=== PATIENT | male | born 1980 | race Caucasian/White ===

== ENCOUNTER 2020-10-27 13:32 | Outpatient (RCR) | payer MEDICAID, SELFPAY | END 2020-12-28 23:59 | LOC: IMMUN 13:32 | PROVIDERS: PCP Registered Nurse; Visit Provider Family Medicine | DX: Z23 Encounter for immunization (principal) | CPT/HCPCS: 0002A; 91300 ==

== ENCOUNTER 2024-01-25 08:58 | Emergency (ER) | payer MEDICAID, SELFPAY ==
[2024-01-25 08:58] VITALS: BP 143/86; BP 144/91; PULSE 129; PULSE 135; RESP 22; RESP 24; TEMP 37.2; O2SAT 95; O2SAT 96; BMI 32.8
--- NOTE | 2024-01-25 09:21 | RAD_ITS ---
INDICATION: cough sob fever EXAMINATION/TECHNIQUE: X-RAY - XR Chest 2 Views COMPARISON: No relevant prior comparison study available FINDINGS: LINES/DEVICES: None. LUNGS: Left perihilar and lower lung infiltrates concerning for pneumonia. Hypoventilatory changes. No evidence of pleural effusions. MEDIASTINUM AND CARDIOVASCULAR STRUCTURES: Cardiac silhouette not enlarged. Central airways and mediastinal contour are unremarkable. BONES AND SOFT TISSUES: Unremarkable. RAD/Chest PA and Lateral IMPRESSION: Left lower lung infiltrate concerning for pneumonia. Electronically Signed: Jeffery Larios MD at 10:02 EDT ,
--- NOTE | 2024-01-25 09:22 | EX.ED.DYSGE1 ---
HPI History of Present Illness Chief Complaint: General Illness Informant: patient Narrative Narrative: Patient states he has been ill with respiratory symptoms for the past week. His son was sick with similar symptoms prior to this, but the patient is having subjective fevers and chills and headaches that his son did not have. His son has a lingering cough. Patient has had episodes of bronchospasm, but when he is not coughing he states he is not really dyspneic. Denies any orthopnea or leg swelling. He is spitting up sputum but has not looked at it does not taste any blood. No history of lung disease or asthma. Not a smoker. States he went urgent care 4 days ago and had a negative COVID/influenza/RSV swab and no other testing done. He is having some diarrhea but not a ton. [facility] Medical History (Updated 01/25/24 @ 10:[address] Reggie Riley MD) Anxiety Depression Home Medications ?Medication ?Instructions ?Recorded ?Last Taken ?Type diazepam 2 mg tablet 2 mg PO TID ##7 08/10/14 Unknown Rx hydrocodone-acetaminophen 5-325mg 1 tab PO Q4H PRN PRN Pain ##20 08/10/14 Unknown Rx 5mg-325mg albuterol sulfate 90 mcg/actuation 1 - 2 puff inhalation Q4H PRN PRN 01/25/24 Unknown Rx aerosol inhaler (Ventolin HFA) Wheezing ##1 levofloxacin 750 mg tablet 750 mg PO Q24H #4 tabs 01/25/24 Unknown Rx Allergy/AdvReac Type Severity Reaction Status Date / Time No Known Allergies Allergy Verified 01/25/24 09:06 Social History household members: spouse and children housing: apartment Smoking Status: Never smoker [facility] ED Constitutional Constitutional ED: Reports chills, fever(s), malaise and subjective Eyes Eyes: Denies blurry vision or change in vision ENT ENT ED: Reports nasal congestion and rhinorrhea; Denies ear pain or sore throat Cardiovascular Cardiovascular: Denies chest pain or palpitations Respiratory/Chest Respiratory/Chest: Reports cough, dyspnea and sputum; Denies dyspnea on exertion Gastrointestinal Gastrointestinal: Reports diarrhea; Denies abdominal pain, nausea or vomiting Genitourinary Genitourinary ED: Denies dysuria or hematuria Musculoskeletal Musculoskeletal: Denies back pain, myalgias or neck pain Integumentary Denies abscess or rash Neurologic Neurologic: Reports headache(s); Denies paresthesias or weakness Psychiatric Psychiatric: Denies suicidal thoughts Endocrine Endocrinology: Denies polydipsia or polyuria EXAM Physical Exam Const Vital Signs: 01/25/24 08:58 01/25/24 08:58 01/25/24 09:04 Temperature 99 F Temperature Source Temporal Pulse Rate 135 H 129 H Respiratory Rate 22 H 24 H Respiratory Effort Normal Non-Labored Respiratory Pattern Normal Blood Pressure 144/91 H 143/86 H Blood Pressure Mean 108 105 Pulse Ox 96 95 Oxygen Delivery Method Room Air Room Air 01/25/24 09:28 Temperature Temperature Source Pulse Rate 122 H Respiratory Rate 24 H Respiratory Effort Respiratory Pattern Tachypnea Blood Pressure Blood Pressure Mean Pulse Ox Oxygen Delivery Method Positive well nourished and well developed Constitutional Narrative: Appears malaised. No acute distress General Appearance ED: well developed and NAD HEENT Reports moist mucous membranes HEENT Narrative: Erythema posterior oropharynx without exudates or asymmetry or trismus normocephalic and atraumatic Eyes PERRL and EOMs intact bilaterally Neck no lymphadenopathy, supple and no meningeal signs Chest Wall inspection of chest normal Chest Narrative: Generally sore with palpation Resp normal respiratory effort and clear to auscultation bilaterally Cardio no murmurs Rate: regular rate Rhythm: regular rhythm Extremity normal to inspection General Extremety ED: Negative for edema General Extremity: Negative for edema Neuro oriented x3, CN's II-XII intact bilaterally and no sensory deficits noted Sensorium / Orientation: alert Motor Exam: strength 5/5 throughout Psych mental status grossly normal Skin no rashes or lesions noted and no wounds Lesions: no lesions Rashes: no rashes MDM MDM MDM Narrative Medical decision making narrative: Patient's symptoms mostly consistent with viral etiology especially given recent family member with similar symptoms, however he has a significant resting tachycardia, so two-view chest x-ray was performed in order to evaluate for pneumonia. My interpretation it shows what appears to be a left lower lobe infiltrate. Radiology in agreement. His pulse oximetry is good at 96% on room air. He is healthy, does not appear septic, I do not think he needs further emergent workup, I did give him some ibuprofen for his low-grade temperature of 99.0, and gave him an albuterol treatment which did help him feel a little better and coughing last, but he is not dyspneic at rest. I believe he can be safely and adequately treated as an outpatient at this time. I am starting him on Levaquin given a prescription for the rest of the 5-day course to start tomorrow, as well as an albuterol inhaler to use as needed. We discussed reasons to return, he is comfortable with that overall plan and follow-up is advised. Radiography Diagnostic Testing: Clinical Impression(s) from Imaging Studies Chest X-Ray 01/25/24 09:21 IMPRESSION: Left lower lung infiltrate concerning for pneumonia. Electronically Signed: Jeffery Larios MD at 10:02 EDT , Discharge Plan Triage Chief Complaint: General Illness ED Provider: Reggie Riley Dx/Rx/DC Orders Clinical Impression: Community acquired pneumonia of left lower lobe of lung Instructions: ED Pneumonia (Adult) Prescriptions: New albuterol sulfate [Ventolin HFA] 90 mcg/actuation HFA aerosol inhaler 1 - 2 puff inhalation Q4H PRN PRN (Reason: Wheezing) Qty: 1 0RF levofloxacin 750 mg tablet 750 mg PO Q24H Qty: 4 0RF No Action hydrocodone-acetaminophen 1 TABLET tablet 1 tab PO Q4H PRN PRN (Reason: Pain) Qty: 20 0RF diazepam 2 MG tablet 2 mg PO TID Qty: 7 0RF Primary Care Provider: Christina Hauser NP Referrals: Christina Hauser NP, [facility] [Primary Care Provider] - 1 Week if not improving (Or if worsening breathing despite treatment, return to the ER for reevaluation) Activity Restrictions/Additional Instructions: Since she received first dose of antibiotic in the ER, start the prescription antibiotic morning of 01/26/2024. Print Language: Cambodian Disposition Disposition: Home, Self Care
[2024-01-25] MEDS: Albuterol 2.5 MG/3 ML VIAL.NEB. INHALATION (09:27)
[2024-01-25 09:28] VITALS: PULSE 122; RESP 24
[2024-01-25] MEDS: Ibuprofen 600 MG Tablet PO (09:38)
[2024-01-25] MEDS: levoFLOXacin 750 MG Tablet PO (10:15)
[2024-01-25 10:21] VITALS: BP 124/82; PULSE 100; RESP 18; TEMP 37.2; O2SAT 98
== END 2024-01-25 10:22 | disposition home or self-care (01) ==
PROVIDERS: Emergency Provider Emergency Medicine; PCP Registered Nurse; Visit Provider Emergency Medicine
DX: J18.9 Pneumonia, unspecified organism (principal)
CPT/HCPCS: 71046; 94640; 99283

== ENCOUNTER 2025-03-09 07:15 | Emergency (ER) | payer MEDICAID, SELFPAY ==
[2025-03-09 07:16] VITALS: BP 166/109; PULSE 92; RESP 16; TEMP 36.4; O2SAT 100; BMI 29.7
[2025-03-09] MEDS: Ketorolac 30 MG/ML Syringe IM (07:40)
[2025-03-09 08:22] VITALS: BP 154/99; PULSE 86; RESP 16; TEMP 36.6; O2SAT 99
--- NOTE | 2025-03-09 16:37 | EDS_ITS ---
HPI History of Present Illness Chief Complaint: Dental Narrative Narrative: Patient is a 44-year-old male presenting to the emergency department for a dental problem. Patient states that he had an abscess of the tooth about 6 months ago. States that this was treated. He states he was eating last night and he felt it to be tooth chip off. Denies any dental pain. Denies facial swelling or oral swelling. [facility] Medical History Anxiety Depression Home Medications ?Medication ?Instructions ?Recorded ?Last Taken ?Type diazepam 2 mg tablet 2 mg PO TID ##7 08/10/14 Unk nown Rx hydrocodone-acetaminophen 5-325mg 1 tab PO Q4H PRN PRN Pain ##20 08/10/14 Unknown Rx 5mg-325mg albuterol sulfate 90 mcg/actuation 1 - 2 puff inhalati on Q4H PRN PRN 01/25/24 Unknown Rx aerosol inhaler (Ventolin HFA) Wheezing ##1 levofloxacin 750 mg tablet 750 mg PO Q24H #4 tabs /12/13 Unknown Rx Allergy/AdvReac Type Severity Reaction Status Date / Time No Known Allergies Allergy Verified 03/09/25 07:19 Social History household members: spouse and children housing: apartment Smoking Status: Never smoker ROS ROS ED ROS Narrative see HPI EXAM Physical Exam Narrative Exam Narrative: Vital signs: Reviewed General: Alert and oriented. No acute distress HEENT: Head is normocephalic and atraumatic, sinuses nontender, pupils equal round and reactive. Nares are patent. There are numerous cavities on oral exam. Numerous chipped teeth as well. Tooth #6 with a class I Biggs tooth fracture. There appears to be no exposed pulp or dentin. No swelling of the gingiva. No bleeding. Neck: Supple without lymphadenopathy nontender Cardiovascular: Regular rate and rhythm, no murmurs. No rubs or gallops. Normal S1 and S2 Respiratory: Clear to auscultation bilaterally. No wheezes, rales, rhonchi Abdominal: Soft and nontender. Normal bowel sounds. No guarding or rebound. Nonsurgical abdomen Extremities: No tenderness. No bruising. Normal range of motion. Normal sensation. Skin: No rash or redness. Neurological: Cranial nerves II through XII are grossly intact. Normal strength and sensation. Normal cerebellar function The rest of the physical exam is unremarkable Const Vital Signs: 03/09/25 07:16 03/09/25 08:22 Temperature 97.5 F L 97.9 F Temperature Source Temporal Pulse Rate 92 86 Respiratory Rate 16 16 Blood Pressure 166/109 H 154/99 H Blood Pressure Mean 128 117 Pulse Ox 100 99 Oxygen Delivery Method Room Air MDM MDM MDM Narrative Medical decision making narrative: Patient is a 44-year-old male presenting to the emergency department for dental concern. Patient was seen and examined. Vitals are stable. Patient resting bed comfortably no acute distress. Appears to be balance classification 1 based on my exam. No abscess on exam. No pain on palpation of the tooth. No indication for abx. He was given dental referral sheet and instructed to follow-up with soon as possible. Patient discharged from the Emergency Department. I do not feel that the patient's evaluation reveals any acute reason for admission at this time. I instructed them to either follow-up with their primary care physician or promptly return to the Emergency Department for reevaluation should symptoms worsen or new symptoms develop. I explained what symptoms would indicate the need to return to the emergency department. Shared decision making was used. The patient voiced understanding of the treatment plan and is agreeable with it. Clinical impression tooth fracture class 1 History & Record Review Discussion w/independent historian: Patient Discharge Plan Triage Chief Complaint: Dental ED Provider: Veda Cavanaugh Dx/Rx/DC Orders Instructions: ED Dental Pain, ED Dental Cavity Prescriptions: No Action hydrocodone-acetaminophen 1 TABLET tablet 1 tab PO Q4H PRN PRN (Reason: Pain) Qty: 20 0RF diazepam 2 MG tablet 2 mg PO TID Qty: 7 0RF albuterol sulfate [Ventolin HFA] 90 mcg/actuation HFA aerosol inhaler 1 - 2 puff inhalation Q4H PRN PRN (Reason: Wheezing) Qty: 1 0RF levofloxacin 750 mg tablet 750 mg PO Q24H Qty: 4 0RF Stand Alone Forms: ED Work / School Excuse Primary Care Provider: Christina Hasuer NP Referrals: Dental Referral Sheet [Other] - As soon as possible Christina Hauser NP, [employer] [Primary Care Provider] - Activity Restrictions/Additional Instructions: Call one of the dental clinics today for follow-up. Your evaluation in the Emergency Department did not reveal any acute reason for admission. However, I want to emphasize that you may be early in the course of a disease process or illness even if it is not present. For this reason you should follow-up within 24 hours for reevaluation with either your primary care physician or if necessary back here in the Emergency Department. You should return to the Emergency Department immediately if your symptoms worsen or new symptoms develop. Print Language: German Disposition Disposition: Home, Self Care Discharge Date/Time: 03/09/25 08:23
== END 2025-03-09 08:23 | disposition home or self-care (01) ==
PROVIDERS: Emergency Provider Student in an Organized Health Care Education/Training Program; PCP Registered Nurse; Visit Provider Student in an Organized Health Care Education/Training Program
DX: S02.5XXA Fracture of tooth (traumatic), initial encounter for closed fracture (principal); X58.XXXA Exposure to other specified factors, initial encounter
CPT/HCPCS: 96372; 99282